=== PATIENT | female | born 1985 | race Caucasian/White ===

== ENCOUNTER → 2016-12-10 | Day surgery (SDC) | payer MEDICAID ==
[2016-07-20 05:31] VITALS: BMI 41.2
[~2016-12-10] MED LIST: BUPIVACAINE 0.25%-EPINEPHRINE 1:200,000 30 ML ONE; DEXAMETHASONE 4 MG/ML VIAL IV ONE; FENTANYL 100 MCG/2 ML VIAL IV ONE; FENTANYL 100 MCG/2 ML VIAL IV PRN; HYDROmorphone 1 MG INJECTION IV PRN; LABETALOL 20 MG/4 ML SYRINGE IV PRN; LIDOCAINE 100 MG PFS IV ONE; MEPERIDINE 25 MG/ML TUBEX IV PRN; METOCLOPRAMIDE 10 MG/2 ML VIAL IV ONE; MIDAZOLAM 2 MG/2 ML VIAL IV ONE; Metronidazole 500 mg/100 ml 500 MG/100 ML RTU IV ONE; ONDANSETRON HCL 4 MG ODT TAB PO PRN; ONDANSETRON HCL 4 MG/2 ML VIAL IV ONE; ONDANSETRON HCL 4 MG/2 ML VIAL IV PRN; OXYCODONE HCL 5 MG TABLET ONE; OXYCODONE HCL 5 MG TABLET PO ONE; PROPOFOL 200 MG/20 ML VIAL IV ONE; SUCCINYLCHOLINE 20 MG/1 ML INJ 10 ML MDV IV ONE; hydrALAZINE 20 MG/ML VIAL IV PRN
[2016-12-10 07:12] LABS: LEUKOCYTES/URINE NEG (NEGATIVE); NITRITE/URINE NEG (NEGATIVE); URINE OCCULT BLOOD NEG (NEG/TRACE)
--- NOTE | 2016-12-10 07:17 | HIM.ANES ---
Anesthesia Evaluation & Plan Diagnoses: ANAL FISTULA (12/10/16) - Focused Review of Systems Cardiac History: Yes: Hx Hypertension ("comes and goes" not on meds), Hx Cardiac Disorders HEENT: Yes: Hx Vision Problem (glasses), Other HEENT Problems Hx Other HEENT Problems: ALLERGIC RHINNITIS Respiratory: Yes: Hx Sleep Apnea (undiagnosed), Hx Snoring Gastrointestinal: Yes: Hx Gastrointestinal Disorders Neurological/Musculoskeletal: Yes: Hx Migraine, Hx Back Pain (bulging disc and cyst-lumbar region), Hx Neurological Disorders Other Neurological Problems: CHIARI MALFORMATION Psychological: Yes Hx Anxiety, Yes Hx Depression, Yes Hx Mental/Emotional Disorders HX Other Psyco/Soc Problems: depression Endocrine: Yes: Hx Non-Insulin Dependent Diabetes (not on meds for), Hx Hyperthyroidism Blood/Autoimmune: Yes: Hx Blood Transfusions, Hx Anemia No: Hx AIDS, Hx Hepatitis (type) Smoking Status: Light tobacco smoker (less than 5/day) Past Social History: Denies: Substance Use Disorder Surgical History: Yes: Cholecystectomy, Bladder Tact, Ureter Stent, Other ( sections) Other Surgical History: I&D PERIRECTAL ABSCESS 06/2016 3 C-sections, PARTIAL HYSTERECTOMY 2013 2 CYSTOPSCOPY WITH JJ STENTS, 2 SURGERIES TO REMOVAL STONE FROM LEFT SIDE - Focused Physical Exam Mallampati: Class II Thyromental Distance: Greater than 3 Neck: Full Range of Motion Dental: Normal - no significant findings Cardiovascular/Chest: Normal Respiratory: Lungs clear Any problems with anesthesia, including nausea and vomiting?: Yes (nausea, vomiting) Any relatives with a history of Malignant Hyperthermia?: No Does the patient have a history of Motion Sickness-: No Other: Problem List Problem Status Onset Chest pain Acute Dysfunctional uterine bleeding Acute Lumbar sprain Acute Rectal abscess Acute S/P abdominal hysterectomy Acute Upper respiratory infection Acute Body mass index 40.0-44.9, adult Chronic Morbid obesity with BMI of 40.0-44.9, adult Chronic PT/PTT/INR/ Urine Test Neg (NEGATIVE) 12/10/16 06:55 Allergies Allergy/AdvReac Type Severity Reaction Status Date / Time Penicillins Allergy Anaphylaxis Verified 12/10/16 07:12 * Home Medications Medication Instructions Recorded Last Taken Type Eletriptan HBr [Relpax] 20 mg PO DAILY PRN 07/17/16 Unknown History Cetirizine HCl [Allergy] 10 mg PO HS 12/09/16 Unknown History Fluticasone Propionate [Flonase] 2 spray MERY HS 12/09/16 Unknown History Indapamide 2.5 mg PO DAILY 12/09/16 Unknown History METHIMAZOLE (hyperthyroid med) 5 mg PO HS 12/09/16 Unknown History [Tapazole] Montelukast Sodium [Singulair] 10 mg PO HS 12/09/16 Unknown History Propranolol HCl 10 mg PO BID PRN 12/09/16 Unknown History Height and Weight Patient's height 5 ft 3 in Patient's weight 104.961 kg BMI 41.2 - Anesthetic Plan Anesthesia Type: General ASA Class: 2 -: I have examined this patient and reviewed the medical record. The patient has been assessed prior to anesthesia. Risks and benefits of anesthesia and anesthetic technique options have been discussed and all questions answered. The patient accepts the risk and desires me to proceed with the planned anesthetic.
[2016-12-10 07:20] LABS: AUTOMATED BASOPHIL 0.6 % (0-2); AUTOMATED EOSINOPHIL 2.7 % (0-5); AUTOMATED LYMPH 23.1 % (17-44); AUTOMATED MONOCYTE 6.5 % (3-10); AUTOMATED NEUTROPHIL 67.1 % (45-76); MPV 7.4 fL (7.4-10.4)
[2016-12-10 07:34] LABS: BLOOD UREA NITROGEN 8 MG/DL (7-17); CALCIUM 9.2 MG/DL (8.4-10.2); CALCULATED OSMOLALITY 273 MOs/Kg (270-290); CHLORIDE 108 mEq/L (98-107); GLUCOSE 98 MG/DL (70-99); SODIUM LEVEL 143 mEq/L (137-146); TOTAL PROTEIN 7.8 G/DL (6.3-8.2)
--- NOTE | 2016-12-10 08:35 | HIMOPRPT ---
DATE OF PROCEDURE: 12/10/16 PREOPERATIVE DIAGNOSIS: Anal fistula POSTOPERATIVE DIAGNOSIS: Same PROCEDURES: Exam under anesthesia, anal fistulotomy SURGEON: Oumar Lim MD ANESTHESIA: General COMPLICATIONS: None. SPECIMENS: None PACKINGS AND DRAINS: Gel-Foam BLOOD LOSS: 1 cubic centimeters. OPERATIVE FINDINGS AND TECHNIQUE: With consent the patient was brought to the operating suite and placed in the supine position. Following general endotracheal anesthesia, the patient was placed in the modified lithotomy position. The anal and perianal areas were prepped and draped in usual fashion. A perianal/rectal examination was performed which revealed an external opening in the superior lateral portion of the left perianal area. Digital exam revealed an internal opening in the same quadrant. A probe was placed through the external opening and passed easily through into the internal opening of the fistulous tract. The fistula appeared superficial. Using the Bovie, fistulotomy was performed. Wound was irrigated and dried. Hemostasis was achieved. Wound was injected with 0.5% Marcaine. Gel-Foam packing was applied. The patient tolerated the procedure well.
[2016-12-10 08:51] VITALS: TEMP 97.4
[2016-12-10 10:17] VITALS: PULSE 84
[2016-12-10 13:00] VITALS: BP 128/80
--- NOTE | 2016-12-10 13:00 | SC.ANESPOS ---
Post-Anesthesia Note LOC: Fully Awake Post-Anesthesia Assessment: Awake, Returned to Baseline, Hemodynamically Stable , Pain Control Adequate Phase I & II Recovery Complete: Yes Apparent Anesthesia Complication: No : N PACU Discharge Time: 09:35 - Vital Signs Blood Pressure: 128/80 Pulse: 84 Resp Rate: 16 O2 Sat: 97 Temp: 97.4 F - Comments Anesthesia Discharge Time Report Time 09:35
== END ==
LOC: SDC 06:47
PROVIDERS: ATTEND Surgery Vascular Surgery
PROC: 0DBQ0ZZ Excision of Anus, Open Approach (ICD-10-PCS; principal; 2016-12-10 08:05)
DX: K60.3 Anal fistula (principal); I10 Essential (primary) hypertension; G43.909 Migraine, unspecified, not intractable, without status migrainosus; F41.9 Anxiety disorder, unspecified; F32.9 Major depressive disorder, single episode, unspecified; E05.90 Thyrotoxicosis, unspecified without thyrotoxic crisis or storm; F17.210 Nicotine dependence, cigarettes, uncomplicated; E66.9 Obesity, unspecified; Z68.39 Body mass index [BMI] 39.0-39.9, adult; Z79.899 Other long term (current) drug therapy
CPT/HCPCS: 46270; 80053; 81001; 81025; 82962; 85025; J0330; J1100; J2001; J2250; J2405; J2765; J3010; J3490